=== PATIENT | female | born 2000 | race American Indian/Alaskan Native ===

== ENCOUNTER 2020-06-29 01:51 | Emergency (ER) | payer MEDICAID ==
[2020-06-29 02:06] VITALS: BP 107/67
== END 2020-06-29 08:00 | disposition left against medical advice (07) ==
LOC: ED 01:51
DX: S69.90XA Unspecified injury of unspecified wrist, hand and finger(s), initial encounter (principal); Z53.21 Procedure and treatment not carried out due to patient leaving prior to being seen by health care provider; W26.9XXA Contact with unspecified sharp object(s), initial encounter; Y93.89 Activity, other specified; Y92.89 Other specified places as the place of occurrence of the external cause; Y99.8 Other external cause status